=== PATIENT | male | born 1935 | race African-American/Black ===

== ENCOUNTER 2021-06-02 07:19 | Day surgery (SDC) | payer OTHER, SELFPAY ==
[~2021-06-02] VITALS: Ht 182.9 cm; Wt 104.3 kg
[2021-06-02] MEDS ORDERED: ARTICAINE HCL/EPINEPHRINE 4%/1:200,000 BIT 1.7 ML CARTRIDGE IJ ONE (10:17)
[2021-06-02] MEDS ORDERED: BENZOCAINE 20% GEL 32 GM BOTTLE MM ONE (10:17)
[2021-06-02] MEDS ORDERED: NS IRRIG SOLN 1000 ML IR ONE (10:17)
[2021-06-02] MEDS ORDERED: NS 250 ML IV.SOLN IV ONE (10:17)
[2021-06-02 11:50] VITALS: BP_SYST 130
== END 2021-06-02 10:40 | disposition home or self-care (01) ==
LOC: SDS 07:19
PROVIDERS: ATTEND Dentist General Practice
DX: M27.2 Inflammatory conditions of jaws (principal); K05.6 Periodontal disease, unspecified; I10 Essential (primary) hypertension; E11.9 Type 2 diabetes mellitus without complications; J44.9 Chronic obstructive pulmonary disease, unspecified; E78.5 Hyperlipidemia, unspecified; M17.0 Bilateral primary osteoarthritis of knee; Z79.899 Other long term (current) drug therapy; Z20.822 Contact with and (suspected) exposure to COVID-19
CPT/HCPCS: 21026; 21215; 21248; 36415; 70140; 82962; 87426; C1713 ×2; J7050

== ENCOUNTER 2021-07-14 07:16 | Day surgery (SDC) | payer OTHER ==
[~2021-07-14] VITALS: Ht 182.9 cm; Wt 106.1 kg
[2021-07-14] MEDS ORDERED: BENZOCAINE 20% GEL 32 GM BOTTLE MM ONE (10:18)
[2021-07-14] MEDS ORDERED: NS IRRIG SOLN 1000 ML IR ONE (10:18)
[2021-07-14] MEDS ORDERED: ARTICAINE HCL/EPINEPHRINE 4%/1:200,000 BIT 1.7 ML CARTRIDGE IJ ONE (10:18)
[2021-07-14] MEDS ORDERED: NS 250 ML IV.SOLN IV ONE (10:18)
[2021-07-14 11:46] VITALS: BP_SYST 120
== END 2021-07-14 10:30 | disposition home or self-care (01) ==
LOC: SDS 07:16 → SMU 07:18 → SDS 10:30
PROVIDERS: ATTEND Dentist General Practice
DX: M27.2 Inflammatory conditions of jaws (principal); M26.603 Bilateral temporomandibular joint disorder, unspecified; K05.223 Aggressive periodontitis, generalized, severe; K08.429 Partial loss of teeth due to periodontal diseases, unspecified class; I10 Essential (primary) hypertension; E78.5 Hyperlipidemia, unspecified; Z88.0 Allergy status to penicillin; N40.0 Benign prostatic hyperplasia without lower urinary tract symptoms; Z79.899 Other long term (current) drug therapy; Z20.822 Contact with and (suspected) exposure to COVID-19
CPT/HCPCS: 21025; 21215; 21248; 36415; 70140; 82962; 87426; C1713; J7050